=== PATIENT | female | born 1995 | race Caucasian/White ===

== ENCOUNTER 2020-11-03 15:39 | Emergency (ER) | payer OTHER ==
[~2020-11-03] VITALS: Ht 167.6 cm; Wt 56.7 kg
[2020-11-03 15:48] VITALS: BP 119/61
--- NOTE | 2020-11-03 16:41 | NUR ---
Pt ambulated to ER bed 3.
--- NOTE | 2020-11-03 16:44 | NUR ---
Pt ambulated to restroom for UA collection.
--- NOTE | 2020-11-03 16:49 | NUR ---
25 Y/O FEMALE C/O HEADACHE, SORE THROAT, FATIGUE, RUNNY NOSE, SOB, LOSS OF TASTE AND SMELL X 2 DAYS. PT TESTED POSITIVE FOR COVID 2 DAYS AGO WHILE CHECKING IN TO [employer]. NO RESPIRATORY DISTRESS NOTED AT THIS TIME. DENIES PMH NKA
--- NOTE | 2020-11-03 17:07 | NUR ---
Dr. Maddox at pt bedside for further evaluation.
[2020-11-03 17:54] VITALS: BP 119/61
--- NOTE | 2020-11-03 17:55 | NUR ---
Patient discharged with v/s stable. Written and verbal after care instructions given PETE 19 and explained. Patient verbalized understanding. Ambulatory with steady gait. All questions addressed prior to discharge. Advised to follow up with PMD.
== END 2020-11-03 17:54 | disposition home or self-care (01) ==
LOC: MED 15:39
DX: U07.1 COVID-19 (principal)
CPT/HCPCS: 71045; 99283